=== PATIENT | female | born 1985 | race Caucasian/White ===

== ENCOUNTER 2019-02-27 09:21 | Emergency (ER) | payer MEDICAID ==
[~2019-02-27] VITALS: Ht 170.2 cm; Wt 137.0 kg
[2019-02-27 09:32] VITALS: Ht 170.2 cm; Wt 137.0 kg
[2019-02-27 11:52] VITALS: BP 145/102
== END 2019-02-27 11:52 | disposition home or self-care (01) ==
LOC: ED 09:21
DX: H66.92 Otitis media, unspecified, left ear (principal); Z88.0 Allergy status to penicillin
CPT/HCPCS: J1100; J1885

== ENCOUNTER 2019-03-01 11:21 | Emergency (ER) | payer MEDICAID ==
[~2019-03-01] VITALS: Ht 170.2 cm; Wt 136.1 kg
[2019-03-01 11:23] VITALS: Ht 170.2 cm; Wt 136.1 kg
[2019-03-01 11:40] VITALS: BP 125/95
== END 2019-03-01 11:40 | disposition home or self-care (01) ==
LOC: ED 11:21
DX: R20.0 Anesthesia of skin (principal); T36.0X5A Adverse effect of penicillins, initial encounter; H66.91 Otitis media, unspecified, right ear; Y92.89 Other specified places as the place of occurrence of the external cause; Z88.0 Allergy status to penicillin; Z88.1 Allergy status to other antibiotic agents